=== PATIENT | male | born 1955 | race Caucasian/White ===

== ENCOUNTER 2018-05-10 10:44 | Inpatient (IN) | payer OTHER ==
[~2018-05-10] VITALS: Ht 172.7 cm; Wt 106.4 kg
[~2018-05-10 10:44] MED LIST: ECOTRIN81 M1 PO; HYCET 7.5 MG-3473 ML PO; LISINOPRIL40 M1 PO; LOVENOX40 MG/0.1 SC; MULTI-DAY VITA1 EACH PO; OMEPRAZOLE20 M2 PO; SEA-OMEGA 50 C1 EACH PO; SIMVASTATIN40 M1 PO; TRANDATE100 MG PO; VITAMIN B-121000 MC3 PO; VITAMIN C1000 M4 PO; VITAMIN D250000 UNIT PO; VITAMIN D31000 UNI2 PO; VITAMIN E1000 UNIT PO
[2018-05-10 12:16] LABS: ABSOLUTE BASOPHIL COUNT 0.1 /CUMM (0.0-0.2); ABSOLUTE EOSINOPHIL COUNT 0.1 /CUMM (0.0-0.7); ABSOLUTE GRANULOCYTE CT 6.1 /CUMM (1.4-6.5); ABSOLUTE LYMPH COUNT 0.9 /CUMM (1.2-3.4); ABSOLUTE MONOCYTE COUNT 0.6 /CUMM (0.10-0.60); BASOPHIL % 1.3 % (0.0-2.0); EOSINOPHIL % 0.7 % (0-5); GRANULOCYTE % 79.1 % (42.2-75.2); HEMATOCRIT 40.5 % (42-52); MEAN CORPUSCULAR HGB 37.8 PG (27.0-31.0); MEAN CORPUSCULAR HGB CONC 35.4 G/DL (33.0-37.0); MEAN CORPUSCULAR VOLUME 106.7 FL (80.0-94.0); MEAN PLATELET VOLUME 6.7 FL (7.4-10.4); PLATELET COUNT 226 /CUMM (130-400); RBC DISTRIBUTION WIDTH 15.1 % (11.5-14.5); WHITE BLOOD CELL COUNT 7.8 /CUMM (4.8-10.8)
--- NOTE | 2018-05-10 13:51 | ED GI/GU/ABDOMINAL COMPLAINT ---
See Addendum History of Present Illness General Chief Complaint: General Adult Stated Complaint: SIB GFP FOR "TESTS" Source: patient Exam Limitations: no limitations Vital Signs & Intake/Output Vital Signs & Intake/Output Vital Signs Date Time Temp Pulse Resp B/P B/P Pulse O2 O2 Flow FiO2 Mean Ox Delivery Rate 05/10 1355 97 Room Air Room Air 05/10 1049 96.6 114 18 152/96 94 Room Air Room Air Allergies Coded Allergies: atorvastatin (From LIPITOR) (JOINT ACHES 12/31/15) Triage Note: PT TO ED WITH C/O ABD DISTENTION X 8-10 WEEKS, HX GASTRIC BYPASS 2 YEARS AGO. ALSO HX OF ETOH ABUSE, STOPPED DRINKING 4 WEEKS AGO. PT ARRIVES TO ED ABD DISTENTION, SKIN AND SCLERA SLIGHTLY JAUNDICE IN COLOR. Triage Nurses Notes Reviewed? yes HPI: Pt is a 62 y/o M PMHx COPD, CURTIS, HTN, GERD, s/p gastric bypass 2 years ago complaining of SOB x 4 weeks. Pt states he fist noticed increased SOB and fatigue while walking the dog. Pt states SOB is at its worst with exertion. Pt denies any SOB at rest, cp, palpitations, orthopnea, dizziness, lightheadedness. Pt states he has also noticed growing abdominal distension over the past four weeks. Pt admits to several episodes of diarrhea described as loose stools. Pt states he has heartburn occasionally after meals. Pt denies any N/V/C, henatochezia, melena, dysuria, oliguria. Pt admits to ETOH use daily. When symptoms started, he cut back on hard alcohol and switched to beer. Pt admits to one beer a day currently. Pt also is complaining of increased bruising on his arms. Pt states that if he bumps his arm, a large bruise forms and persists for several days. Pt states he has not been keeping up with a primary doctor over the past year since losing insurance and currently only takes omeprazole, ASA, benadryl PRN, multivitamin. Pt no longer has CPAP after losing insurance. (Kevin CELAYA,Aman) Reconcile Medications Aspirin (Ecotrin*) 81 MG TABLET. 1 TAB PO DAILY HEART/BLOOD (Reported) Multiple Vitamin (Multivitamins) 1 EACH TABLET 1 TAB PO DAILY SUPPLEMENT ( Reported) (Valerie ALVA,Asif.) Past History Travel History Traveled to [place] past 21 day No Medical History Any Pertinent Medical History? see below for history Neurological: NONE EENT: NONE Cardiovascular: hypertension Respiratory: COPD/CURTIS Gastrointestinal: GERD Hepatic: NONE Renal: NONE Musculoskeletal: NONE Psychiatric: alcohol dependence Endocrine: NONE Blood Disorders: NONE Cancer(s): NONE BUCKRAM SEWER/Reproductive: NA History of MRSA: No History of VRE: No History of CDIFF: No Influenza Vaccine: 06/27/15 Surgical History Surgical History: HEAD CYST, R & L SHOULDER ARTHROSCOPY TENDON REPAIR Psychosocial History Who do you live with Patient/Self What is your primary language Angolan Tobacco Use: Quit >30 days ago ETOH Use: alcoholic, CLEAN X 4 WEEKS Illicit Drug Use: denies illicit drug use Family History Hx Contributory? No (Aman Vo) Review of Systems Review of Systems Constitutional: Denies: see HPI. Respiratory: Reports: see HPI. Cardiovascular: Reports: see HPI. GI: Reports: see HPI. Genitourinary: Denies: see HPI. Skin: Reports: see HPI. (Aman Vo) Physical Exam Physical Exam General Appearance: well developed/nourished, alert, awake Head: atraumatic, normal appearance Eyes: Bilateral: other (sceral icterus). Neck: normal inspection, supple, full range of motion Respiratory: decreased breath sounds, wheezing Cardiovascular: regular rate/rhythm, tachycardia, NMRG Peripheral Pulses: 2+ radial (R), 2+ radial (L), 1+ dorsalis pedis (R), 1+ dorsalis pedis (L) Gastrointestinal: normal bowel sounds, distention, tender to palpation of LUQ. No rebound Extremities: Bilateral 3+ LE edema Neurologic/Psych: awake, alert, oriented x 3 Skin: intact, Ecchymosis noted to bilateral UE dispersed on forarms Core Measures ACS in differential dx? Yes Sepsis Present: No Sepsis Focused Exam Completed? No (Aman Vo) Progress Differential Diagnosis: AMI, cholecystitis, hepatitis, pancreatitis, Cirrhosis, Congestive heart failure, Pneumonia Plan of Care: Orders Procedure Date/time Status Heart Healthy Diet 05/11 L Active Heart Healthy Diet 05/11 B Active URINE OSMOLALITY 05/10 170 Active URINE LYTES, SPOT 05/10 170 Active Pathway - chart 05/10 170 Active House Staff 05/10 1702 Active Patient Data 05/10 1632 Active ED Holding Orders 05/10 1608 Active Admit to inpatient 05/10 1608 Active Vital Signs 05/10 1608 Active Code Status 05/10 1608 Active Add-on Test (ER Only) 05/10 1448 Active Add-on Test (ER Only) 05/10 1439 Active EKG 05/10 1438 Active Add-on Test (ER Only) 05/10 1301 Active TROPONIN LEVEL 05/10 1210 Active PARTIAL THROMBOPLASTIN TIME 05/10 1210 Complete PROTHROMBIN TIME 05/10 1210 Complete HEPATITIS PANEL 05/10 1210 Active DIRECT BILIRUBIN 05/10 1210 Active URINALYSIS 05/10 1128 Active LIPASE 05/10 1128 Active COMPREHENSIVE METABOLIC PANEL 05/10 1128 Active CBC WITHOUT DIFFERENTIAL 05/10 1128 Complete AMYLASE 05/10 1128 Active Lab Add-on Test 05/10 UNK Active VTE Mechanical Prophylaxis 05/10 UNK Active CIWA 05/10 UNK Active Current Medications Sig/Dione Start time Last Medication Dose Stop Time Status Admin Enoxaparin Sodium 40 MG DAILY 05/11 0900 AC (Lovenox) Lorazepam 0 Q1P PRN 05/10 1715 AC (Ativan) Laboratory Tests 05/10/18 1210: Anion Gap 11, Estimated GFR > 60, BUN/Creatinine Ratio 19.0, Glucose 104 H, Calcium 8.3 L, Total Bilirubin 6.2 H, Direct Bilirubin Pending, AST 171 H, ALT 90 H, Alkaline Phosphatase 154 H, Troponin I < 0.01, Total Protein 6.5, Albumin 2.8 L, Globulin 3.7, Albumin/Globulin Ratio 0.8 L, Amylase 80, Lipase 614 H, PT 16.2 H, INR 1.48 H, APTT 32, CBC w Diff NO MAN DIFF REQ, RBC 3.80 L, MCV 106.7 H, MCH 37.8 H, MCHC 35.4, RDW 15.1 H, MPV 6.7 L, Gran % 79.1 H , Lymphocytes % 11.7 L, Monocytes % 7.2, Eosinophils % 0.7, Basophils % 1.3, Absolute Granulocytes 6.1, Absolute Lymphocytes 0.9 L, Absolute Monocytes 0.6, Absolute Eosinophils 0.1, Absolute Basophils 0.1, Hepatitis A IgM Ab NONREACTIVE , Hep Bs Antigen NONREACTIVE, Hep B Core IgM Ab Conf NONREACTIVE, Hepatitis C Antibody NONREACTIVE Diagnostic Imaging: Viewed by Me: Radiology Read, CT Scan. Discussed w/RAD: Radiology Read, CT Scan. Radiology Impression: PATIENT: GREY CROWLEY PRESENT AGE: 62 PATIENT ACCOUNT NO: [id number] : 53 LOCATION: [facility] ORDERING PHYSICIAN: Ruth CELAYA SERVICE DATE: 05/10/18 EXAM TYPE: CAT - CT ABD & PELVIS W IV CONTRAST EXAMINATION: CT ABDOMEN AND PELVIS WITH CONTRAST CLINICAL INFORMATION: Abdominal distention and abnormal LFTs/ bilirubin. Rule out cholecystitis, liver abnormality, and ascites. COMPARISON: None TECHNIQUE: Multidetector volumetric imaging was performed of the abdomen and pelvis following IV administration of 95 mL of Optiray 320 intravenous contrast. Sagittal and coronal reformatted images were obtained on the technologist's workstation. DLP: 1331 mGy-cm FINDINGS: LUNG BASES: The visualized lung bases are unremarkable. Normal heart size. Atheromatous calcifications in the coronary arteries. LIVER, GALLBLADDER, AND BILIARY TREE: Liver is normal in size. No definite masses are seen. There is some indistinctness of the hepatic contour which may reflect underlying nodularity. There is mild hyperdensity within the gallbladder likely reflecting sludge. No definite calcified stones are seen. PANCREAS: Unremarkable. SPLEEN: Unremarkable. ADRENAL GLANDS: Unremarkable. KIDNEYS AND URETERS: The kidneys are normal in size, shape, and attenuation. No hydronephrosis, hydroureter, or calculi seen. No perinephric stranding. BLADDER: Unremarkable. GASTROINTESTINAL TRACT: The small and large bowel are unremarkable. The appendix is not definitively seen. There is no bowel obstruction. There are postoperative findings related to Duncan-en-Y gastric bypass surgery. There is large amount of ascites throughout the abdomen and pelvis. As a result there is marked abdominopelvic distention. ABDOMINAL WALL: Diffuse anasarca throughout the subcutaneous fat of the abdominal wall. Small fat-containing left inguinal hernia. LYMPH NODES: Normal. VASCULAR: Diffuse atheromatous calcifications in the abdominal aorta and its branch vessels. The portal vein, splenic vein, and superior mesenteric veins are patent. PELVIC VISCERA: Top normal sized prostate. Normal seminal vesicles. No pelvic mass. OSSEOUS STRUCTURES: Moderate multilevel degenerative spondylotic changes throughout the thoracolumbar spine. Severe disc height loss at L4-L5 with degenerative endplate spurring. Degenerative changes at the right hip joint with mild joint space loss. IMPRESSION: - Large amount of abdominopelvic ascites. - No hepatic mass. Mild indistinctness of the hepatic contour which may be related to underlying nodularity. This finding could be better assessed with ultrasound if needed. - Postoperative changes related to Duncan-en-Y gastric bypass. - Hyperdensity within the gallbladder likely reflecting sludge. - Diffuse anasarca. DICTATED BY: Barak Lopes MD DATE/TIME DICTATED:05/10/181536 STRATEGIC DEBRIEFING SPECIALIST:ELSY DATE/TIME TRANSCRIBED:1536 CONFIDENTIAL, DO NOT COPY WITHOUT APPROPRIATE AUTHORIZATION. < Electronically signed in Other Vendor System> SIGNED BY: Barak Lopes MD 05/10/18 155, PATIENT: GREY CROWLEY PRESENT AGE: 62 PATIENT ACCOUNT NO: [id number] : 53 LOCATION: [facility] ORDERING PHYSICIAN: Aman CELAYA SERVICE DATE: 05/10/18 EXAM TYPE: RAD - XRY-PORTABLE CHEST XRAY EXAMINATION: XR PORTABLE CHEST CLINICAL INFORMATION: Shortness of breath. COMPARISON: Chest radiograph 12/14/2015. TECHNIQUE: Portable frontal view of the chest was obtained. FINDINGS: There are low lung volumes. No dense consolidation, edema, effusion, or pneumothorax is seen. The cardiomediastinal contours appear normal. IMPRESSION: Within the limitations of low lung volumes no acute abnormality is seen in the chest. DICTATED BY: Barak Lopes MD DATE/TIME DICTATED:05/10/181506 STRATEGIC DEBRIEFING SPECIALIST:ELSY DATE/ TIME TRANSCRIBED:05/10/181506 CONFIDENTIAL, DO NOT COPY WITHOUT APPROPRIATE AUTHORIZATION. <Electronically signed in Other Vendor System> SIGNED BY: Barak Lopes MD 05/10/18 151 Initial ED EKG: normal sinus rhythm, rate (101, low voltage), nonspecific ST T wave chg (Aman Vo) Departure Departure Disposition: STILL A PATIENT Condition: Stable Clinical Impression Primary Impression: Hyponatremia Secondary Impressions: Ascites, Liver dysfunction Referrals: Unknown (PCP/Family) Departure Forms: Customer Survey General Discharge Information Admission Note Spoke With: Johana ALVA,Gunnar Documentation of Exam: Documentation of any treatments & extenuating circumstances including Concerns Regarding Discharge (functional status, medication knowledge or non-compliance, living conditions, etc.) that warrant an admission rather than observation: GI consultation. Electrolyte correction. Patient may require a interventional radiology paracentesis. Medically not safe for discharge. (Aman Vo) PA/PRACTICE MANAGEMENT CONSULTANT Co-Sign Statement Statement: ED Attending supervision documentation- [XC] I saw and evaluated the patient. I have also reviewed all the pertinent lab results and diagnostic results. I agree with the findings and the plan of care as documented in the PA's/PRACTICE MANAGEMENT CONSULTANT's documentation. [X] I have reviewed the ED Record and agree with the PA's/PRACTICE MANAGEMENT CONSULTANT's documentation. [] Additions or exceptions (if any) to the PAs/PRACTICE MANAGEMENT CONSULTANT's note and plan are summarized below: [Patient to be admitted for hyponatremia in the setting of ascites. Patient will need a GI consultation and workup, free water restriction, paracentesis] (Valerie ALVA,Chandan Gilbert)
[2018-05-10 15:04] LABS: PT 16.2 SEC (9.4-12.5); PTT 32 SEC (25-37)
--- NOTE | 2018-05-10 15:13 | RADIOLOGY REPORT ---
EXAMINATION: XR PORTABLE CHEST CLINICAL INFORMATION: Shortness of breath. COMPARISON: Chest radiograph 12/14/2015. TECHNIQUE: Portable frontal view of the chest was obtained. FINDINGS: There are low lung volumes. No dense consolidation, edema, effusion, or pneumothorax is seen. The cardiomediastinal contours appear normal. IMPRESSION: Within the limitations of low lung volumes no acute abnormality is seen in the chest.
--- NOTE | 2018-05-10 15:53 | CT SCAN REPORT ---
EXAMINATION: CT ABDOMEN AND PELVIS WITH CONTRAST CLINICAL INFORMATION: Abdominal distention and abnormal LFTs/bilirubin. Rule out cholecystitis, liver abnormality, and ascites. COMPARISON: None TECHNIQUE: Multidetector volumetric imaging was performed of the abdomen and pelvis following IV administration of 95 mL of Optiray 320 intravenous contrast. Sagittal and coronal reformatted images were obtained on the technologist's workstation. DLP: 1331 mGy-cm FINDINGS: LUNG BASES: The visualized lung bases are unremarkable. Normal heart size. Atheromatous calcifications in the coronary arteries. LIVER, GALLBLADDER, AND BILIARY TREE: Liver is normal in size. No definite masses are seen. There is some indistinctness of the hepatic contour which may reflect underlying nodularity. There is mild hyperdensity within the gallbladder likely reflecting sludge. No definite calcified stones are seen. PANCREAS: Unremarkable. SPLEEN: Unremarkable. ADRENAL GLANDS: Unremarkable. KIDNEYS AND URETERS: The kidneys are normal in size, shape, and attenuation. No hydronephrosis, hydroureter, or calculi seen. No perinephric stranding. BLADDER: Unremarkable. GASTROINTESTINAL TRACT: The small and large bowel are unremarkable. The appendix is not definitively seen. There is no bowel obstruction. There are postoperative findings related to Duncan-en-Y gastric bypass surgery. There is large amount of ascites throughout the abdomen and pelvis. As a result there is marked abdominopelvic distention. ABDOMINAL WALL: Diffuse anasarca throughout the subcutaneous fat of the abdominal wall. Small fat-containing left inguinal hernia. LYMPH NODES: Normal. VASCULAR: Diffuse atheromatous calcifications in the abdominal aorta and its branch vessels. The portal vein, splenic vein, and superior mesenteric veins are patent. PELVIC VISCERA: Top normal sized prostate. Normal seminal vesicles. No pelvic mass. OSSEOUS STRUCTURES: Moderate multilevel degenerative spondylotic changes throughout the thoracolumbar spine. Severe disc height loss at L4-L5 with degenerative endplate spurring. Degenerative changes at the right hip joint with mild joint space loss. IMPRESSION: - Large amount of abdominopelvic ascites. - No hepatic mass. Mild indistinctness of the hepatic contour which may be related to underlying nodularity. This finding could be better assessed with ultrasound if needed. - Postoperative changes related to Duncan-en-Y gastric bypass. - Hyperdensity within the gallbladder likely reflecting sludge. - Diffuse anasarca.
[2018-05-10] MEDS ORDERED: ASPIRIN EC81 M1 PO (16:22)
[2018-05-10] MEDS ORDERED: MULTIVITAMINS1 EAC9 PO (16:23)
--- NOTE | 2018-05-10 16:30 | History & Physical ---
GabrielleIvelisse 05/10/18 0230: General Information and HPI MD Statement: I have seen and personally examined GREY CROWLEY and documented this H&P. The patient is a 62 year old M who presented with a patient stated chief complaint of shortness of breath and abdominal distension. Source of Information: patient History of Present Illness: 62-year-old male with past medical history of hypertension, COPD, morbid obesity (BMI: 40.4), CURTIS (no longer on CPAP, since he lost his insurance), alcohol dependence (drinks at least one beer a day), status post gastric bypass presents to the ED with chief complaint of shortness of breath and abdominal distention since 4 weeks. He says he began to notice easy bruising on his arms around November this year. About two months ago, he started getting short of breath on exertion. About 4 weeks ago, he started notiicng distension in his abdomen which has been getting worse since. His daughter apparently noticed about 4 weeks ago that he appeared jaundiced. His abdominal distension has been getting worse to the extent that he is not able to eat The patient apparently had been having 5-6 shots of bourbon or 6 beers everyday till about 4 weeks ago when he decided to quit. He has been drinking one beer a day since. His last drink was the day before yesterday when he says he had half a can of beer. He has never been admitted for alcohol withdrawal. He endorses a tremor in his left hand which has been present for 15 years now and a recent onset tremor in his right hand. The tremor is present at rest and is not aggravated or alleviated with alcohol. He apparently quit smoking in 2008 and has not smoked since. He denies having used illicit drugs ever. He reports he has lost insurance and would be paying for his medical expenses on his own. Allergies/Medications Allergies: Coded Allergies: atorvastatin (From LIPITOR) (JOINT ACHES 12/31/15) Home Med list Aspirin (Ecotrin*) 81 MG TABLET. 1 TAB PO DAILY HEART/BLOOD (Reported) Multiple Vitamin (Multivitamins) 1 EACH TABLET 1 TAB PO DAILY SUPPLEMENT ( Reported) Past History Travel History Traveled to [place] past 21 day No Medical History Neurological: NONE EENT: NONE Cardiovascular: hypertension Respiratory: COPD/CURTIS Gastrointestinal: GERD Hepatic: NONE Renal: NONE Musculoskeletal: NONE Psychiatric: alcohol dependence Endocrine: NONE Blood Disorders: NONE Cancer(s): NONE SODA ROOM OPERATOR/Reproductive: NA History of MRSA: No History of VRE: No History of CDIFF: No Influenza Vaccine: 06/27/15 Surgical History Surgical History: HEAD CYST, R & L SHOULDER ARTHROSCOPY TENDON REPAIR Past Family/Social History Psychosocial History ETOH Use: alcoholic Illicit Drug Use: denies illicit drug use Review of Systems Review of Systems Constitutional: Denies: chills, diaphoresis, fever, malaise. EENTM: Reports: icterus. Denies: blurred vision, visual changes. Cardiovascular: Reports: edema, peripheral edema. Denies: chest pain, orthopena, palpitations, syncope. Respiratory: Reports: short of breath. Denies: cough, hemoptysis, orthopnea, sputum production, stridor, wheezing. GI: Reports: abdominal pain, bloating, diarrhea, distention, changes in stool. Denies: constipation, bowel incontinence, melena, nausea, bloody stool, vomiting. Genitourinary: Denies: frequency, hematuria, hesitation, nocturia. Musculoskeletal: Denies: gout, joint pain, joint swelling, muscle pain. Skin: Reports: jaundice, lesions. Denies: change in skin color, change in hair/nails, dryness, erythema, rash. Neurological/Psychological: Reports: tremors. Denies: anxiety, ataxia, cognitive dysfunction, confusion, depressed, dementia, emotional problems, headache, numbness, paresthesia, tingling. Hematologic/Endocrine: Reports: bruising. Denies: bleeding, polyuria, polydipsia. Exam & Diagnostic Data Last 24 Hrs of Vital Signs/I&O Vital Signs Date Time Temp Pulse Resp B/P B/P Pulse O2 O2 Flow FiO2 Mean Ox Delivery Rate 05/10 2207 97.9 92 18 122/80 97 Room Air 05/10 1927 98.3 104 20 110/80 05/10 1927 96 Room Air 05/10 1919 92 18 144/79 98 Room Air 05/10 1355 97 Room Air Room Air 05/10 1049 96.6 114 18 152/96 94 Room Air Room Air Intake & Output 05/10 1600 05/10 0800 05/10 0000 Intake Total Output Total Balance Patient 266 lb Weight Weight Reported by Patient Measurement Method Physical Exam General Appearance Alert, Oriented X3, Cooperative, No Acute Distress Skin Multiple ecchymoses on bilateral forearms Skin Temp/Moisture Exam: Warm/Dry Sepsis Skin Exam (color): Normal for Ethnicity Neck Supple Cardiovascular Regular Rate, Normal S1, Normal S2, No Murmurs Lungs Clear to Auscultation Abdomen Abdomen grossly distended Neurological tremor present bilateral upper limb left hand>right hand Extremities Normal Pulses, pedal edema + Vascular Normal Pulses, Pulses Symmetrical Assessment/Plan Assessment: 62-year-old male with past medical history of hypertension, COPD, morbid obesity (BMI: 40.4), CURTIS (no longer on CPAP, since he lost his insurance), alcohol dependence (drinks at least one beer a day), status post gastric bypass presents to the ED with chief complaint of shortness of breath and abdominal distention since 4 weeks. On examination Vital signs in the ED: Temp: 96.6, pulse: 114, RR: 18, BP: 152/96, saturating 94 % on room air Labs: WBC:7.8 Hgb:14.3 Na: 123 K:3.9 Bilirubin:6.2 Direct bilirubin:3.9 AST:171 ALT:90Alkaline phosphatase: 154 ALbumin:2.3 Lipase:614 INR:1.43 Abdominal Ultrasound IMPRESSION: 1. Large volume of abdominal ascites. 2. No focal liver lesion or intrahepatic bile duct dilatation. 3. Echogenic bile within the gallbladder. No gallstone. Abdominal CT scan IMPRESSION: - Large amount of abdominopelvic ascites. - No hepatic mass. Mild indistinctness of the hepatic contour which may be related to underlying nodularity. This finding could be better assessed with ultrasound if needed. - Postoperative changes related to Duncan-en-Y gastric bypass. - Hyperdensity within the gallbladder likely reflecting sludge. - Diffuse anasarca. Problems: 1. Ascites with decompensated liver failure 2. Transaminitis 3. Hyponatremia 4. Macrocytic anemia 5. Eleveted Lipase 6. Alcohol dependence 7. Easy bruising 8. History of COPD, CURTIS, GERD 1. Ascites -Large volume ascites likely secondary to decompensated liver failure -CT scan demonstrates nodularity of the liver -Paracentesis in the AM -Albumin supplementation -Repeat BEP in the AM -Trend LFTs -GI consult in the AM - 2. Tranaminitis -AST elevated approximately 2 times ALT signifying alcoholic liver disease -Patient apparently has been trying to quit -WIll repeat BEP 3. Hyponatremia -Likely secondary to beer potomania -Fluid restriction -Trend BEP 4. Macrocytic anemia -Likely seconadary to chornic alcohol use -Supplement B12 and folic acid -The patient does not complain of any focal neurological deficits at this time 5. Alcohol withdrawal - The patient has apparently been drinking heavily -At risk for severe withdrawal -He is on CIWA protocol, will monitor for withdrawal 6. Easy bruising -Platelet count adequate -Bruising likely due to qualitative defect in platelets 7. History of CURTIS, GERD, HYpertension and Hyperlipidemia Continue home medications and CPAP DVT prophylaxis: Lovenox Code status: Full code As Ranked By This Provider Problem List: 1. Ascites 2. Liver dysfunction 3. Hyponatremia 4. Hyperlipidemia 5. GERD (gastroesophageal reflux disease) 6. Sleep apnea 7. Hypertension 8. Morbid obesity 9. Gastric bypass status for obesity 10. Alcohol dependence 11. Macrocytic anemia 12. Easy bruising Core Measures/Misc (06/04) Acute Coronary Syndrome ACS Diagnosis: No Congestive Heart Failure Congestive Heart Failure Diagnosis No Cerebrovascular Accident CVA/TIA Diagnosis: No VTE (View Protocol) VTE Risk Factors Age>40 No Mechanical VTE Prophylaxis d/t N/A MechProphylax Ordered No VTE Pharm Prophylaxis d/t NA PharmProphylax ordered Sepsis (View protocol) Sepsis Present: No If YES complete Sepsis Event Note If YES complete Sepsis Event Note Gunnar Vaughn MD 05/10/18 1741: Core Measures/Misc (06/04) Sepsis (View protocol) If YES complete Sepsis Event Note If YES complete Sepsis Event Note Attending MD Review Statement Attending Statement Attending MD Statement: examined this patient, discuss w/resident/PA/DEHYDRATOR, agreed w/resident/PA/DEHYDRATOR, reviewed EMR data (avail), discussed with nursing, discussed with case mgmt, amended to note Attending Assessment/Plan: 62-year-old history of gastric bypass surgery 3 years ago presents to the emergency room complains of progressively worsening shortness of breath generalized edema and increased abdominal girth. Arrived emergency room afebrile hemodynamically stable. Imaging reveals severe ascites and evidence of cirrhosis. Laboratory data shows transaminitis and elevated bilirubin level. Laboratory data also shows hyponatremia. On account of his symptoms on lab work he was referred to the inpatient medical service for further evaluation and management. On examination patient is lying comfortably in bed. Is not in any respiratory distress. Heart sounds are regular. No jugular venous distention. Lungs are clear. Abdomen is markedly distended. Soft, from, nontender with normal bowel sounds. He has 1+ peripheral edema in the lower extremities. He has ecchymotic areas in the upper extremities. Problems: 1. Marked ascites secondary to cirrhosis 2. Transaminitis 3. Hyponatremia 4. Alcohol abuse Plan: -Admit to inpatient medical service. -Schedule for diagnostic and therapeutic paracentesis tomorrow. -Fluid restriction. Repeat serum chemistry in a.m. -Viral hepatitis panel is negative. Transaminitis is likely secondary to alcohol use. -Lipase levels mildly elevated.CT scan however shows an unremarkable pancreas. Patient denies abdominal pain. -Place on CIWA scale. Although patient reports that he has been gradually cutting down his alcohol intake, he is at high risk for developing alcohol withdrawal symptoms. Manjinder ALVA,[facility] 05/10/182057: Core Measures/Misc (06/04) Sepsis (View protocol) If YES complete Sepsis Event Note If YES complete Sepsis Event Note Resident Review Statement Resident Statement: examined this patient, agreed with general intern, amended to note Other Findings: 62-year-old present gentleman with a past medical history significant for COPD, CURTIS, hypertension, GERD, active and chronic alcohol abuse, presents for evaluation of four-week history of shortness of breath especially on exertion. Associated symptoms include increased abdominal girth. No report of chest pain, palpitation, orthopnea. On physical examination he has prominent abdominal ascites and appears jaundiced. His Liver functions and enzymes are deranged ( elevated). Impression * Abdominal ascites. Directly visible consistent with grade 4 ascites. There is no abdominal tenderness or fevers/leukocytosis, therefore concern for SBP is very low. Patient does have an extensive alcohol use history in the office high risk for liver cirrhosis. This CT abdomen and pelvis is suggestive of liver nodularity but no clear cirrhotic characteristics. Clinically he is presenting with liver function decompensation given the transaminitis, elevated PT, and elevated bilirubin. * Hyponatremia. Given his fluid status his etiology is most likely hypovolemic hyponatremia. * Transaminitis. The elevated AST to ALT ratio of almost 2:1 is consistent with alcohol abuse. * Alcohol abuse. Plan Admit to general medicine Fluid restriction of 1200 per day Obtain urine lytes Trend BEP tomorrow morning for sodium levels Will order right upper quadrant ultrasound to better assess for liver nodularity Will arrange for abdominal paracentesis which will obviously be for therapeutic and diagnostic reasons Given the expectation of large volume paracentesis, will give patient albumin tomorrow DVT prophylaxis; Lovenox apparent CODE STATUS full
--- NOTE | 2018-05-10 17:39 | Admission Certification ---
Admission Certification Certification Statement - As attending physician, I certify that at the time of - admission, based on clinical presentation, severity of - symptoms, need for further diagnostic testing and - therapeutic interventions, and risk of adverse outcomes - without in-hospital treatment, in my clinical assessment, - this patient requires an acute hospital stay for a minimum - of two nights or longer. I have also considered psychsocial - factors such as support system, advanced age, financial - issues, cognitive issues, and failed out-patient treatments, - past re-admission history, safety of patient, and lack of - compliance as applicable. Specific rationale supporting this admission is: Patient requires hospitalization for management of his hyponatremia. Paracentesis
[2018-05-10 19:27] VITALS: BP 110/80
--- NOTE | 2018-05-10 20:12 | ULTRASOUND REPORT ---
EXAMINATION: US ABDOMEN COMPLETE CLINICAL INFORMATION: Abdominal bloating.. COMPARISON: Ultrasound limited abdomen 01/19/2015. CT scan abdomen pelvis 05/12/2018 TECHNIQUE: Real-time imaging of the abdominal viscera. Color Doppler exam used. FINDINGS: PANCREAS: Obscured by bowel gas ABDOMINAL AORTA: Obscured by bowel gas INFERIOR VENA CAVA: Obscured by bowel gas LIVER: Echotexture of the liver is slightly heterogeneous. There is no focal liver lesion. There is no intrahepatic bile duct dilatation. GALLBLADDER: There is echogenic bile in the lumen of the gallbladder. There is no gallstone. The wall thickness of the gallbladder is 0.4 cm which is nonspecific in the presence of abdominal ascites. COMMON BILE DUCT: Normal in caliber measuring 0.6 cm in diameter. RIGHT KIDNEY: Normal. No hydronephrosis. No renal calculi or focal parenchymal lesions. The kidney measures 10.6 cm in maximum dimension. LEFT KIDNEY: Left kidney is not visualized. Obscured by bowel gas. SPLEEN: The spleen is not visualized. Obscured by bowel gas. FREE FLUID: There is a large volume of abdominal ascites. IMPRESSION: 1. Large volume of abdominal ascites. 2. No focal liver lesion or intrahepatic bile duct dilatation. 3. Echogenic bile within the gallbladder. No gallstone.
[2018-05-10 22:07] VITALS: BP 122/80
[2018-05-11] VITALS (7 sets, daily range): BP systolic 114–140; BP diastolic 68–80
--- NOTE | 2018-05-11 07:26 | PN- Housestaff ---
Ivelisse Anthony 05/11/18 0726: Subjective Follow-up For: Abdominal distension SOB Subjective: Patient was seen and exmained at bedside. He has no new complaints. Denies fever , chills, nausea, vomiting, chest pain. Review of Systems Constitutional: Reports: see HPI. Objective Last 24 Hrs of Vital Signs/I&O Vital Signs Date Time Temp Pulse Resp B/P B/P Pulse O2 O2 Flow FiO2 Mean Ox Delivery Rate 05/12 0800 96 Room Air 05/12 0615 97.4 85 20 126/72 94 05/11 2209 98.5 90 19 114/76 96 Room Air 05/11 2200 98.5 90 19 114/76 05/11 2000 98.1 82 18 128/68 05/11 1552 98.1 82 18 128/68 97 Room Air Room Air 05/11 1346 98.4 103 18 130/80 97 Room Air Room Air Intake & Output 05/12 1600 05/12 0800 05/12 0000 Intake Total 240 850 Output Total Balance 240 850 Intake, IV 0 10 Intake, Oral 240 840 Number 0 0 Bowel Movements Patient 218 lb 236 lb Weight Weight Bed scale Bed scale Measurement Method Physical Exam General Appearance: Alert, Oriented X3, Cooperative, No Acute Distress Skin: ecchymoses on b/l arms Neck: Supple Cardiovascular: Regular Rate, Normal S1, Normal S2, No Murmurs Lungs: Clear to Auscultation Abdomen: large volume ascites, n tenderness Extremities: No Edema, Normal Pulses Assessment/Plan Assessment: 62-year-old male with past medical history of hypertension, COPD, morbid obesity (BMI: 40.4), CURTIS (no longer on CPAP, since he lost his insurance), alcohol dependence (drinks at least one beer a day), status post gastric bypass is admiyyed to the Gen Med service for the management of shortness of breath and abdominal distention since 4 weeks. On examination Vital signs in the ED: Temp: 96.6, pulse: 114, RR: 18, BP: 152/96, saturating 94 % on room air Labs: WBC:7.8 Hgb:14.3 Na: 123 K:3.9 Bilirubin:6.2 Direct bilirubin:3.9 AST:171 ALT:90Alkaline phosphatase: 154 ALbumin:2.3 Lipase:614 INR:1.43 Abdominal Ultrasound IMPRESSION: 1. Large volume of abdominal ascites. 2. No focal liver lesion or intrahepatic bile duct dilatation. 3. Echogenic bile within the gallbladder. No gallstone. Abdominal CT scan IMPRESSION: - Large amount of abdominopelvic ascites. - No hepatic mass. Mild indistinctness of the hepatic contour which may be related to underlying nodularity. This finding could be better assessed with ultrasound if needed. - Postoperative changes related to Duncan-en-Y gastric bypass. - Hyperdensity within the gallbladder likely reflecting sludge. - Diffuse anasarca. Problems: 1. Ascites with decompensated liver failure 2. Transaminitis 3. Hyponatremia 4. Macrocytic anemia 5. Eleveted Lipase 6. Alcohol dependence 7. Easy bruising 8. History of COPD, CURTIS, GERD 1. Ascites -Large volume ascites likely secondary to decompensated liver failure -CT scan demonstrates nodularity of the liver -Paracentesis later in the day today -Albumin supplementation -Trend BEP -Trend LFTs - 2. Tranaminitis -AST elevated approximately 2 times ALT signifying alcoholic liver disease -Patient apparently has been trying to quit -WIll repeat BEP 3. Hyponatremia -Likely secondary to beer potomania -Fluid restriction -Trend BEP 4. Macrocytic anemia -Likely seconadary to chornic alcohol use -Supplement B12 and folic acid -The patient does not complain of any focal neurological deficits at this time 5. Alcohol withdrawal - The patient has apparently been drinking heavily -At risk for severe withdrawal -He is on CIWA protocol, will monitor for withdrawal 6. Easy bruising -Platelet count adequate -Bruising likely due to qualitative defect in platelets 7. History of CURTIS, GERD, HYpertension and Hyperlipidemia Continue home medications and CPAP DVT prophylaxis: Lovenox Code status: Full code Problem List: 1. Gastric bypass status for obesity 2. Alcohol dependence 3. Macrocytosis 4. Easy bruising 5. Ascites 6. Liver dysfunction 7. Hyponatremia 8. Hyperlipidemia 9. Sleep apnea 10. Hypertension 11. Morbid obesity Pain Ratin Pain Location: none Pain Goal: Remain pain free Pain Plan: none Tomorrow's Labs & Rationales: cbc and bep Osmar Thomason 05/11/18 1132: Attending MD Review Statement Attending Statement Attending MD Statement: examined this patient, discuss w/resident/PA/COMPUTER NUMERICAL CONTROL PROGRAMMER, agreed w/resident/PA/COMPUTER NUMERICAL CONTROL PROGRAMMER, discussed with family, reviewed EMR data (avail), discussed with nursing, discussed with case mgmt, reviewed images, amended to note Attending Assessment/Plan: 62-year-old history of gastric bypass surgery 3 years ago presents to the emergency room complains of progressively worsening shortness of breath with generalized edema and increased abdominal girth. Hemodynamically stable. Abdomen distended with positive fluid thrill. Problems: 1. Marked ascites secondary to cirrhosis 2. Transaminitis 3. Hyponatremia 4. Alcohol abuse 5. Elevated INR Plan: -obtain diagnostic and therapeutic paracentesis. -Fluid restriction. Na 124 today. -Viral hepatitis panel is negative. Transaminitis is likely secondary to alcohol use. -Monitor Na levels and hemodynamcis after paracentesis. -anticipate discharge if bp stable FOLLOW UP PCP in 1-2 weeks of discharge
[2018-05-11 08:25] LABS: ABSOLUTE BASOPHIL COUNT 0 /CUMM (0.0-0.2); ABSOLUTE EOSINOPHIL COUNT 0.2 /CUMM (0.0-0.7); ABSOLUTE GRANULOCYTE CT 4.6 /CUMM (1.4-6.5); ABSOLUTE LYMPH COUNT 1.5 /CUMM (1.2-3.4); ABSOLUTE MONOCYTE COUNT 0.8 /CUMM (0.10-0.60); BASOPHIL % 0.4 % (0.0-2.0); EOSINOPHIL % 2.7 % (0-5); GRANULOCYTE % 64.5 % (42.2-75.2); HEMATOCRIT 37.1 % (42-52); MEAN CORPUSCULAR HGB 37.6 PG (27.0-31.0); MEAN CORPUSCULAR HGB CONC 34.4 G/DL (33.0-37.0); MEAN CORPUSCULAR VOLUME 109.4 FL (80.0-94.0); MEAN PLATELET VOLUME 7.2 FL (7.4-10.4); PLATELET COUNT 195 /CUMM (130-400); RBC DISTRIBUTION WIDTH 15.4 % (11.5-14.5); RED BLOOD CELL CT 3.39 /CUMM (4.70-6.10); WHITE BLOOD CELL COUNT 7.1 /CUMM (4.8-10.8)
--- NOTE | 2018-05-11 15:51 | Patient Discharge Instructions ---
Discharge Instructions General Discharge Information You were seen/treated for: Shortness of breath Abdominal Distension Bruising on your arms You had these procedures: Paracentesis Special Instructions: 1.Please see your PCP within a week of your discharge. 2. Please schedule an appointment with within a week from the discharge to get an EGD done. 3. Please strictly restrict your Sodium intake to 2g a day. 4. Please restrict your fluid intake to 1500cc a day. 5. Please get your alpha fetoprotein levels checked as an outpatient. 6. Please record DAILY weights and chart them. You would need to bring them to your doctors' offices when you go and see them. Acute Coronary Syndrome Inclusion Criteria At DC or during hospital stay patient has or had the following: ACS DIAGNOSIS No Discharge Core Measures Meds if any: Prescribed or Continued at Discharge Meds if any: NOT Prescribed or Continued at Discharge Congestive Heart Failure Inclusion Criteria At DC or during hospital stay patient has or had the following: CHF DIAGNOSIS No Discharge Core Measures Meds if any: Prescribed or Continued at Discharge Meds if any: NOT Prescribed or Continued at Discharge Cerebrovascular accident Inclusion Criteria At DC or during hospital stay patient has or had the following: CVA/TIA Diagnosis No Discharge Core Measures Meds if any: Prescribed or Continued at Discharge Meds if any: NOT Prescribed or Continued at Discharge Venous thromboembolism Inclusion Criteria VTE Diagnosis No VTE Type NONE VTE Confirmed by (Test) NONE Discharge Core Measures - Per Current guidelines, there needs to be overlap - treatment for the first 5 days of Warfarin therapy. - If discharged on Warfarin prior to 5 days of - overlap therapy, the patient will need to be - assessed for post discharge needs including - *Post discharge parental anticoagulation - *Warfarin and/or parental anticoagulation education - *Follow up date to check INR post discharge At least 5 days overlap therapy as Inpatient No Meds if any: Prescribed or Continued at Discharge Note: Overlap Therapy is Warfarin and Anticoagulant Meds if any: NOT Prescribed or Continued at Discharge
--- NOTE | 2018-05-11 16:32 | ULTRASOUND REPORT ---
EXAMINATION: PARACENTESIS CLINICAL INFORMATION: Ascites COMPARISON: Abdominal ultrasound and CT abdomen pelvis 05/10/2018 TECHNIQUE: Indirect ultrasound guidance using a 6 Danish Qssv-X-Zqleoeod closed needle/catheter system FINDINGS: Informed consent was obtained from the patient prior to the procedure. During this process, the procedure alternatives were explained, along with the intended outcome and benefits. The risks of the procedure, as well as the risk of not doing the procedure, was discussed. The patient was given the opportunity to ask questions regarding the procedure and appeared competent to make medical decisions. A signed consent form which documents this discussion was placed in the medical record. Ultrasound evaluation of the abdomen for ascites was performed. Large amount of ascites is noted in the right lower quadrant. The site was marked. A timeout procedure was performed. The area was prepped and draped in usual sterile fashion. Using standard interventional and sterile techniques, lidocaine was used to anesthetize the region. A 6 Danish Lefh-X-Thphjroy closed needle/catheter system was introduced into the right lower quadrant using standard safety needle technique. Approximately 11.5 L of light yellow fluid was removed into the Vacutainer bottles. The catheter was then removed. Good hemostasis was achieved. Dermabond was placed. The patient demonstrated immediate symptomatic relief. The patient tolerated the procedure well. The patient was discharged from the department in stable condition. COMPLICATIONS: None. IMPRESSION: Successful ultrasound-guided paracentesis yielding 11.5 L of fluid.
[2018-05-12 06:15] VITALS: BP 126/72
[2018-05-12 08:34] LABS: ABSOLUTE BASOPHIL COUNT 0 /CUMM (0.0-0.2); ABSOLUTE EOSINOPHIL COUNT 0.3 /CUMM (0.0-0.7); ABSOLUTE GRANULOCYTE CT 3.9 /CUMM (1.4-6.5); ABSOLUTE MONOCYTE COUNT 0.8 /CUMM (0.10-0.60); BASOPHIL % 0.4 % (0.0-2.0); EOSINOPHIL % 4.6 % (0-5); GRANULOCYTE % 64.7 % (42.2-75.2); HEMATOCRIT 37.6 % (42-52); MEAN CORPUSCULAR HGB 37.8 PG (27.0-31.0); MEAN CORPUSCULAR VOLUME 108.1 FL (80.0-94.0); MEAN PLATELET VOLUME 7.2 FL (7.4-10.4); PLATELET COUNT 166 /CUMM (130-400); RBC DISTRIBUTION WIDTH 15.1 % (11.5-14.5); RED BLOOD CELL CT 3.48 /CUMM (4.70-6.10)
--- NOTE | 2018-05-12 11:43 | PN- Housestaff ---
Paulo Harper 05/12/18 1142: Subjective Follow-up For: Ascites, Shortness of breath Subjective: Patient seen and examined at bedside. He was enjoying his breakfast. He was no more complaining of shortness of breath, chest pain, palpitation, abdominal pain , diarrhea, constipation, burning micturition, confusion, disorientation. Review of Systems Constitutional: Reports: see HPI. Objective Last 24 Hrs of Vital Signs/I&O Vital Signs Date Time Temp Pulse Resp B/P B/P Pulse O2 O2 Flow FiO2 Mean Ox Delivery Rate 05/12 1505 97.8 100 18 128/81 99 Room Air 05/12 0800 96 Room Air 05/12 0615 97.4 85 20 126/72 94 05/11 2209 98.5 90 19 114/76 96 Room Air 05/11 2200 98.5 90 19 114/76 05/11 2000 98.1 82 18 128/68 Intake & Output 05/12 1600 05/12 0800 05/12 0000 Intake Total 600 240 850 Output Total 3 Balance 597 240 850 Intake, IV 0 10 Intake, Oral 600 240 840 Number 0 0 Bowel Movements Output, Stool 3 Patient 218 lb 236 lb Weight Weight Bed scale Bed scale Measurement Method Physical Exam General Appearance: Alert, Oriented X3, Cooperative, No Acute Distress Assessment/Plan Assessment: 62-year-old male with past medical history of hypertension, COPD, morbid obesity (BMI: 40.4), CURTIS (no longer on CPAP, since he lost his insurance), alcohol dependence (drinks at least one beer a day), status post gastric bypass is admiyyed to the Gen Med service for the management of shortness of breath and abdominal distention since 4 weeks. On examination Vital signs in the ED: Temp: 96.6, pulse: 114, RR: 18, BP: 152/96, saturating 94 % on room air Labs: WBC:7.8 Hgb:14.3 Na: 123 K:3.9 Bilirubin:6.2 Direct bilirubin:3.9 AST:171 ALT:90Alkaline phosphatase: 154 ALbumin:2.3 Lipase:614 INR:1.43 Abdominal Ultrasound IMPRESSION: 1. Large volume of abdominal ascites. 2. No focal liver lesion or intrahepatic bile duct dilatation. 3. Echogenic bile within the gallbladder. No gallstone. Abdominal CT scan IMPRESSION: - Large amount of abdominopelvic ascites. - No hepatic mass. Mild indistinctness of the hepatic contour which may be related to underlying nodularity. This finding could be better assessed with ultrasound if needed. - Postoperative changes related to Duncan-en-Y gastric bypass. - Hyperdensity within the gallbladder likely reflecting sludge. - Diffuse anasarca. Problems list: *Ascites with elevated liver enzyme *Hyponatremia *Microcytic anemia *Alcohol dependence *Hyponatremia *Elevated lipase * Obstructive sleep apnea, COPD, GERD Ascites: -Large volume ascites likely secondary to decompensated liver failure, -Paracentesis done 11 L of fluid drained. Patient is vitally stable now, -Liver enzymes trending down. -A low-salt diet -His liver disease seem to be due to alcohol. -GI consultation placed -Will follow GI notes Hyponatremia -Likely secondary to beer potomania -Fluid restriction from tonight -We will follow BMP tomorrow Macrocytic anemia -Likely seconadary to chornic alcohol use -Supplement B12 and folic acid -The patient does not complain of any focal neurological deficits at this time -No sign of imbalance -No tingling and burning sensation in the arms and legs Alcohol withdrawal - The patient has apparently been drinking heavily -At risk for severe withdrawal -He is on CIWA protocol, will monitor for withdrawal History of CURTIS, GERD, HYpertension and Hyperlipidemia Continue home medications and CPAP DVT prophylaxis: Lovenox Code status: Full code Problem List: 1. Morbid obesity 2. GERD (gastroesophageal reflux disease) 3. Hyponatremia 4. Ascites 5. Alcohol dependence Pain Ratin Pain Location: No pain Pain Goal: Remain pain free Pain Plan: Pain management pathway Tomorrow's Labs & Rationales: IJEOMA Veloz MD,Amir 05/12/18 1238: Attending MD Review Statement Attending Statement Attending MD Statement: examined this patient, discuss w/resident/PA/COMPUTER NUMERICAL CONTROL GRINDER, agreed w/resident/PA/COMPUTER NUMERICAL CONTROL GRINDER, reviewed EMR data (avail), discussed with nursing Attending Assessment/Plan: Pt was seen and evaluated. Chart reviewed. Underwent paracentesis ~ 11.5 L. Pt denies any GI/Liver eval in the past. --pt will need GI/Liver eval for further evaluation & managment --cont to monitor lytes & fluid restriction --rest of the plan as per resident's note
[2018-05-12 15:05] VITALS: BP 128/81
[2018-05-12 21:21] VITALS: BP 117/69
[2018-05-13 06:24] VITALS: BP 112/76
--- NOTE | 2018-05-13 08:36 | PN- Housestaff ---
Paulo Harper 05/13/18 0836: Subjective Follow-up For: Ascites, shortness of breath Subjective: Patient seen and examined at bedside. He was no more complaining of shortness of breath, chest pain, palpitation, abdominal pain, diarrhea, constipation, burning micturition, confusion, disorientation. Review of Systems Constitutional: Reports: see HPI. Objective Last 24 Hrs of Vital Signs/I&O Vital Signs Date Time Temp Pulse Resp B/P B/P Pulse O2 O2 Flow FiO2 Mean Ox Delivery Rate 05/13 1500 98.0 92 20 110/72 98 05/13 1057 97.1 76 18 126/76 96 Room Air 05/13 0800 96 Room Air 05/13 0624 97.7 85 20 112/76 96 05/12 2121 97.9 91 20 117/69 96 Room Air Intake & Output 05/13 1600 05/13 0800 05/13 0000 Intake Total 360 10 610 Output Total 325 300 100 Balance 35 -290 510 Intake, IV 10 10 Intake, Oral 360 600 Output, Urine 325 300 100 Patient 202 lb Weight Weight Bed scale Measurement Method Physical Exam General Appearance: Alert, Oriented X3, Cooperative, No Acute Distress Assessment/Plan Assessment: 62-year-old male with past medical history of hypertension, COPD, morbid obesity (BMI: 40.4), CURTIS (no longer on CPAP, since he lost his insurance), alcohol dependence (drinks at least one beer a day), status post gastric bypass is admiyyed to the Gen Med service for the management of shortness of breath and abdominal distention since 4 weeks. On examination Vital signs in the ED: Temp: 96.6, pulse: 114, RR: 18, BP: 152/96, saturating 94 % on room air Labs: WBC:7.8 Hgb:14.3 Na: 123 K:3.9 Bilirubin:6.2 Direct bilirubin:3.9 AST:171 ALT:90Alkaline phosphatase: 154 ALbumin:2.3 Lipase:614 INR:1.43 Abdominal Ultrasound IMPRESSION: 1. Large volume of abdominal ascites. 2. No focal liver lesion or intrahepatic bile duct dilatation. 3. Echogenic bile within the gallbladder. No gallstone. Abdominal CT scan IMPRESSION: - Large amount of abdominopelvic ascites. - No hepatic mass. Mild indistinctness of the hepatic contour which may be related to underlying nodularity. This finding could be better assessed with ultrasound if needed. - Postoperative changes related to Duncan-en-Y gastric bypass. - Hyperdensity within the gallbladder likely reflecting sludge. - Diffuse anasarca. Problems list: *Ascites with elevated liver enzyme *Hyponatremia *Microcytic anemia *Alcohol dependence *Hyponatremia *Elevated lipase * Obstructive sleep apnea, COPD, GERD Ascites: -Large volume ascites likely secondary to decompensated liver failure, -Paracentesis done 11 L of fluid drained. Patient is vitally stable now, -Liver enzymes trending down. -A low-salt diet -His liver disease seem to be due to alcohol. -GI consultation recommended, 2 g sodium diet with dietitian counseling -May liberalize fluid restriction to 1500 mL, given sodium of greater than 125 -Daily weight and after discharge -Outpatient EGD to rule out varices -Alpha-fetoprotein -Outpatient alcohol rehab -Outpatient follow-up with Dr. Olivarez -Will follow GI notes Hyponatremia -Today sodium was 126 -Likely secondary to beer potomania -Fluid restriction from tonight last night continued -We will follow BMP tomorrow Macrocytic anemia -Likely seconadary to chornic alcohol use -Supplement B12 and folic acid -The patient does not complain of any focal neurological deficits at this time -No sign of imbalance -No tingling and burning sensation in the arms and legs Alcohol withdrawal - The patient has apparently been drinking heavily -At risk for severe withdrawal -He is on CIWA protocol, will monitor for withdrawal History of CURTIS, GERD, HYpertension and Hyperlipidemia Continue home medications and CPAP DVT prophylaxis: Lovenox Code status: Full code Problem List: 1. Hyponatremia 2. GERD (gastroesophageal reflux disease) 3. Morbid obesity 4. Ascites 5. Easy bruising Pain Ratin Pain Location: no pain Pain Goal: Remain pain free Pain Plan: pain mangement pathway Tomorrow's Labs & Rationales: gene Veloz MD,Amir 05/13/18 1047: Attending MD Review Statement Attending Statement Attending MD Statement: examined this patient, discuss w/resident/PA/MANGLE FEEDER, agreed w/resident/PA/MANGLE FEEDER, reviewed EMR data (avail), discussed with nursing Attending Assessment/Plan: Pt reports doing OK. Denies any abd pain, Nausea or vomiting --Na stable --f/u GI eval --rest of the plan as per resident's note
[2018-05-13 10:57] VITALS: BP 126/76
--- NOTE | 2018-05-13 13:18 | Cons- Gastroenterology ---
General Information and HPI Consulting Request Date of Consult: 05/13/18 Requested By: Paddy ALVA,Osmar Reason for Consult: Decompensated cirrhosis Allergies/Medications Allergies: Coded Allergies: atorvastatin (From LIPITOR) ([facility] 12/31/15) Home Med List: Aspirin (Ecotrin*) 81 MG TABLET.DR 1 TAB PO DAILY HEART/BLOOD (Reported) Multiple Vitamin (Multivitamins) 1 EACH TABLET 1 TAB PO DAILY SUPPLEMENT ( Reported) Current Medications: Current Medications Sig/Dione Start time Last Medication Dose Route Stop Time Status Admin Acetaminophen 325 MG Q6P PRN 05/10 2130 AC PO Aspirin Buffered 81 MG DAILY 05/12 09 AC 05/13 PO 1015 Enoxaparin Sodium 40 MG DAILY 05/11 0900 AC 05/13 SC 1016 Lidocaine 1 PAT Q24H PRN 05/10 2130 AC EXT Lorazepam 0 Q1P PRN 05/10 171 AC IV Melatonin 5 MG AT BEDTIME 05/11 2100 AC 05/12 PO 2010 Past History Travel History Traveled to [place] past 21 day No Medical History Blood Transfusion Hx: No Neurological: NONE EENT: NONE Cardiovascular: hypertension Respiratory: COPD/CURTIS Gastrointestinal: GERD Hepatic: NONE Renal: NONE Musculoskeletal: NONE Psychiatric: alcohol dependence Endocrine: NONE Blood Disorders: NONE Cancer(s): NONE SEEING EYE DOG TEACHER/Reproductive: NA Surgical History Surgical History: HEAD CYST, R & L SHOULDER ARTHROSCOPY TENDON REPAIR Psychosocial History Where Do You Live? Home Services at Home: None Smoking Status: Former Smoker ETOH Use: alcoholic Illicit Drug Use: denies illicit drug use Exam & Diagnostic Data Vital Signs and I&O Vital Signs Date Time Temp Pulse Resp B/P B/P Pulse O2 O2 Flow FiO2 Mean Ox Delivery Rate 05/13 1057 97.1 76 18 126/76 96 Room Air 05/13 0800 96 Room Air 05/13 0624 97.7 85 20 112/76 96 05/12 2121 97.9 91 20 117/69 96 Room Air 05/12 1505 97.8 100 18 128/81 99 Room Air Intake & Output 05/13 1600 05/13 0400 05/12 1600 05/12 0400 05/11 1600 05/11 0400 Intake Total 10 610 840 850 740 310 Output Total 300 100 3 Balance -290 510 837 850 740 310 Intake, IV 10 10 0 10 10 Intake, Oral 600 840 840 740 300 Number 0 0 Bowel Movements Output, Stool 3 Output, Urine 300 100 Patient 202 lb 218 lb 236 lb 241 lb Weight Weight Bed scale Bed scale Bed scale Bed scale Measurement Method Results Pertinent Lab Results: Laboratory Tests 05/13 05/12 05/12 05/11 0775 2158 0700 2014 Chemistry Sodium (137 - 145 mmol/L) 126 L 125 L 125 L 123 L Potassium (3.5 - 5.1 mmol/L) 3.7 4.1 3.7 3.6 Chloride (98 - 107 mmol/L) 92 L 90 L 91 L 89 L Carbon Dioxide (22 - 30 mmol/L) 28 29 27 26 Anion Gap (5 - 16) 7 6 7 8 BUN (9 - 20 mg/dL) 16 17 15 17 Creatinine (0.7 - 1.2 mg/dL) 0.8 0.9 0.9 0.9 Estimated GFR (>60 ml/min) > 60 > 60 > 60 > 60 BUN/Creatinine Ratio (7 - 25 %) 20.0 18.9 16.7 18.9 Hematology CBC w Diff NO MAN DIFF REQ WBC (4.8 - 10.8 /CUMM) 6.0 RBC (4.70 - 6.10 /CUMM) 3.48 L Hgb (14.0 - 18.0 G/DL) 13.1 L Hct (42 - 52 %) 37.6 L MCV (80.0 - 94.0 FL) 108.1 H MCH (27.0 - 31.0 PG) 37.8 H MCHC (33.0 - 37.0 G/DL) 35.0 RDW (11.5 - 14.5 %) 15.1 H Plt Count (130 - 400 /CUMM) 166 MPV (7.4 - 10.4 FL) 7.2 L Gran % (42.2 - 75.2 %) 64.7 Lymphocytes % (20.5 - 51.1 %) 17.3 L Monocytes % (1.7 - 9.3 %) 13.0 H Eosinophils % (0 - 5 %) 4.6 Basophils % (0.0 - 2.0 %) 0.4 Absolute Granulocytes (1.4 - 6.5 /CUMM) 3.9 Absolute Lymphocytes (1.2 - 3.4 /CUMM) 1.0 L Absolute Monocytes (0.10 - 0.60 /CUMM) 0.8 H Absolute Eosinophils (0.0 - 0.7 /CUMM) 0.3 Absolute Basophils (0.0 - 0.2 /CUMM) 0 05/11 05/11 05/11 1420 1420 0649 Chemistry Sodium (137 - 145 mmol/L) 124 L Potassium (3.5 - 5.1 mmol/L) 3.9 Chloride (98 - 107 mmol/L) 89 L Carbon Dioxide (22 - 30 mmol/L) 27 Anion Gap (5 - 16) 8 BUN (9 - 20 mg/dL) 19 Creatinine (0.7 - 1.2 mg/dL) 1.0 Estimated GFR (>60 ml/min) > 60 BUN/Creatinine Ratio (7 - 25 %) 19.0 Hematology CBC w Diff NO MAN DIFF REQ WBC (4.8 - 10.8 /CUMM) 7.1 RBC (4.70 - 6.10 /CUMM) 3.39 L Hgb (14.0 - 18.0 G/DL) 12.7 L Hct (42 - 52 %) 37.1 L MCV (80.0 - 94.0 FL) 109.4 H MCH (27.0 - 31.0 PG) 37.6 H MCHC (33.0 - 37.0 G/DL) 34.4 RDW (11.5 - 14.5 %) 15.4 H Plt Count (130 - 400 /CUMM) 195 MPV (7.4 - 10.4 FL) 7.2 L Gran % (42.2 - 75.2 %) 64.5 Lymphocytes % (20.5 - 51.1 %) 21.7 Monocytes % (1.7 - 9.3 %) 10.7 H Eosinophils % (0 - 5 %) 2.7 Basophils % (0.0 - 2.0 %) 0.4 Absolute Granulocytes (1.4 - 6.5 /CUMM) 4.6 Absolute Lymphocytes (1.2 - 3.4 /CUMM) 1.5 Lymphocytes (%) 5 Absolute Monocytes (0.10 - 0.60 /CUMM) 0.8 H Absolute Eosinophils (0.0 - 0.7 /CUMM) 0.2 Absolute Basophils (0.0 - 0.2 /CUMM) 0 % Normal PMNs (%) 1 Other Body Source Fluid WBC (0 - 5 /CUMM) 171 H Fld Mesothelial Cells (%) Fld Total RBCs Counted (0 /CUMM) 26 H Fluid Glucose (mg/dL) 102 Fluid Total Protein (g/dL) < 2.0 Fluid Albumin (g/dL) < 1.0 Fluid LDH (U/L) 214 05/10 05/10 2330 2330 Urines Urinalysis LIGHT H Urine Color (YEL,AMB,STR) NAZANIN Urine Clarity (CLEAR) CLEAR Urine pH (5.0 - 8.0) 6.0 Ur Specific [place] (1.001 - 1.035) 1.015 Urine Protein (NEG,<30 MG/DL) NEG Urine Ketones (NEG) TRACE H Urine Nitrite (NEG) POS H Urine Bilirubin (NEG) NEG@ICTO Urine Urobilinogen (0.1 - 1.0 EU/dl) 2.0 H Ur Leukocyte Esterase (NEG) NEG Ur Microscopic SEDIMENT EXAMINED Urine RBC (0 - 5 /HPF) 1-3 Urine WBC (0 - 2 /HPF) 3-5 H Urine Bacteria (NEG/NONE) FEW H Hyaline Casts (0/LPF) 1-3 H Urine Mucus (FEW,NONE) FEW Urine Hemoglobin (NEG) NEG Urine Osmolality (300 - 1000 MOSM/KG) 692 Ur Random Creatinine (mg/dL) 228.6 Ur Random Sodium (30 - 90 mmol/L) < 5 L Ur Random Potassium (mmol/L) 39.3 Fraction Sodium Excret (<1% %) 0.0 Urine Glucose (N MG/DL) NEG Imaging/Other Studies: Ultrasound on May 10: IMPRESSION: 1. Large volume of abdominal ascites. 2. No focal liver lesion or intrahepatic bile duct dilatation. 3. Echogenic bile within the gallbladder. No gallstone. CT scan on May 10 (IV contrast): IMPRESSION: - Large amount of abdominopelvic ascites. - No hepatic mass. Mild indistinctness of the hepatic contour which may be related to underlying nodularity. This finding could be better assessed with ultrasound if needed. - Postoperative changes related to Duncan-en-Y gastric bypass. - Hyperdensity within the gallbladder likely reflecting sludge. - Diffuse anasarca. Assessment/Plan Assessment/Recommendations: 62-year-old male with a history of excessive alcohol use, and obesity (status post Duncan-en-Y gastric bypass). The patient began to develop increasing abdominal size and jaundice last month. He presents with decompensated cirrhosis, validated by imaging, and including the following: (1) Ascites, high SAAG, no peritonitis, no renal dysfunction. (2) Hyponatremia, not due to beer potomania as has been postulated elsewhere (the patient was not drinking alcohol prior to admission), but likely due to cirrhotic physiology. (3) Jaundice, hypoalbuminemia, mild coagulopathy. There has been no evidence of encephalopathy , no bleeding, and imaging does not reveal any hepatic lesion. The patient underwent an 11 L paracentesis with inadequate albumin repletion. He has been fluid restricted because of his hyponatremia, but is not on a low-sodium diet and, and has not been counseled as to the importance of this. Recommendations * 2 g sodium diet; the patient will need dietary counseling/instruction * May liberalize fluid restriction to 1500 mL, given sodium of greater than 125 * Given hyponatremia, will not begin diuretics at this point * Daily weight, including after discharge(patient should keep chart) * Outpatient EGD to rule out varices * Check alpha-fetoprotein * Outpatient alcohol rehabilitation program * After discharge, careful outpatient follow-up with Dr. Olivarez Consult Acknowledgment - Thank you for your consult request.
[2018-05-13 15:00] VITALS: BP 110/72
[2018-05-13 18:39] VITALS: BP 129/87
[2018-05-13 21:24] VITALS: BP 114/77
[2018-05-14 02:08] VITALS: BP 108/58
[2018-05-14 06:30] VITALS: BP 102/70
--- NOTE | 2018-05-14 08:33 | PN- Housestaff ---
Ivelisse Anthony 05/14/18 0833: Subjective Follow-up For: Large volume ascites Subjective: Patient was seen and examined at bedside. He reports an interval increase in his abdominal distension today. He is eating and drinking well, although he reports a 7/10 in the epigastric region after meals. He is currently on a fluid restriction of 1500cc a day and a 2g sodium diet. He denies fever, chills, nausea, vomiting, chest pain. Review of Systems Constitutional: Reports: see HPI. Objective Last 24 Hrs of Vital Signs/I&O Vital Signs Date Time Temp Pulse Resp B/P B/P Pulse O2 O2 Flow FiO2 Mean Ox Delivery Rate 05/14 0800 96 Room Air 05/14 0630 97.5 80 18 102/70 94 05/14 0208 97.6 84 18 108/58 95 05/13 2124 98.5 90 17 114/77 98 Room Air 05/13 1839 97.7 110 19 129/87 98 Room Air 05/13 1500 98.0 92 20 110/72 98 Intake & Output 05/14 1600 05/14 0800 05/14 0000 Intake Total 120 510 Output Total 175 100 Balance -55 410 Intake, IV 10 Intake, Oral 120 500 Output, Urine 175 100 Patient 235 lb Weight Physical Exam General Appearance: Alert, Oriented X3, Cooperative, No Acute Distress Skin: scaterred ecchymoses on bilateral upper limbs and torso Neck: Supple Cardiovascular: Regular Rate, Normal S1, Normal S2 Lungs: Clear to Auscultation Abdomen: distended, no distended veins seen, tenderness in the epigastric region Extremities: Normal Pulses, pedal edema 1+ Assessment/Plan Assessment: 62-year-old male with past medical history of hypertension, COPD, morbid obesity (BMI: 40.4), CURTIS (no longer on CPAP, since he lost his insurance), alcohol dependence (drinks at least one beer a day), status post gastric bypass is admitted to the [facility] service for the management of shortness of breath and abdominal distention since 4 weeks. He is s/p paracentesis on 05/11 wherein close to 11L fluid was drained. He again reports an interval increase in his abdominal girth since the past 2 days. He also complains of a 7/10 pain in the epigastric region especially after meals. There is slight tenderness to touch in the epigastric region. Abdominal Ultrasound IMPRESSION: 1. Large volume of abdominal ascites. 2. No focal liver lesion or intrahepatic bile duct dilatation. 3. Echogenic bile within the gallbladder. No gallstone. Abdominal CT scan IMPRESSION: - Large amount of abdominopelvic ascites. - No hepatic mass. Mild indistinctness of the hepatic contour which may be related to underlying nodularity. This finding could be better assessed with ultrasound if needed. - Postoperative changes related to Duncan-en-Y gastric bypass. - Hyperdensity within the gallbladder likely reflecting sludge. - Diffuse anasarca. Problems: 1. Ascites with decompensated liver failure 2. Transaminitis 3. Hyponatremia 4. Macrocytic anemia 5. Eleveted Lipase 6. Alcohol dependence 7. Easy bruising 8.Epigastric pain 9. History of COPD, CURTIS, GERD 1. Ascites -Large volume ascites likely secondary to decompensated liver failure -CT scan demonstrates nodularity of the liver -s/p Paracentesis -Albumin supplementation was given after paracentsis -GI input appreciate. * Patient is on fluid restriction of 1500cc * He is on a Sodium restricted diet of 2g * There has been an interval increase in the volume of ascites over the last 2 days. Will follow GI recommendations on the further course of management -Trend BEP -Trend LFTs - 2. Tranaminitis -AST elevated approximately 2 times ALT signifying alcoholic liver disease -Patient apparently has been trying to quit -WIll repeat BEP 3. Hyponatremia -Secondary to cirrhosis -Fluid restriction and on Na diet of 2g -Trend BEP 4. Macrocytosis -Likely seconadary to chornic alcohol use -Supplement B12 and folic acid -The patient does not complain of any focal neurological deficits at this time 5. Alcohol withdrawal - The patient has apparently been drinking heavily -At risk for severe withdrawal -He is on CIWA protocol, will monitor for withdrawal 6. Easy bruising -Platelet count adequate -Bruising likely due to qualitative defect in platelets 7. History of CURTIS, GERD, HYpertension and Hyperlipidemia Continue home medications and CPAP DVT prophylaxis: Lovenox Code status: Full code Problem List: 1. Macrocytosis 2. Alcohol dependence 3. Easy bruising 4. Ascites 5. Liver dysfunction 6. Hyponatremia 7. Hyperlipidemia 8. GERD (gastroesophageal reflux disease) 9. Sleep apnea 10. Hypertension 11. Morbid obesity Pain Ratin Pain Location: epigastric region post meals Pain Goal: Remain pain free Pain Plan: prilosec for now Tomorrow's Labs & Rationales: cbc and bep Osmar Thomason 05/14/18 1147: Attending MD Review Statement Attending Statement Attending MD Statement: examined this patient, discuss w/resident/PA/DIGITAL COMMUNITY MANAGER, agreed w/resident/PA/DIGITAL COMMUNITY MANAGER, discussed with family, reviewed EMR data (avail), discussed with nursing, discussed with case mgmt, reviewed images, amended to note Attending Assessment/Plan: 62-year-old history of gastric bypass surgery 3 years ago presents to the emergency room complains of progressively worsening shortness of breath with generalized edema and increased abdominal girth 2/2 decompensated cirrhosis and ascites likely alcoholic. Hemodynamically stable. Abdomen mild distended. Problems: 1. Marked ascites secondary to cirrhosis 2. Transaminitis 3. Hyponatremia 4. Alcohol abuse 5. Elevated INR Plan: -s/p diagnostic and therapeutic paracentesis. Removal 10l of fluid. -Fluid restriction. Na stable. -Viral hepatitis panel is negative. Transaminitis is likely secondary to alcohol use. -anticipate discharge if ok with GI. FOLLOW UP PCP in 1-2 weeks of discharge GI in 2-3 weeks of discharge
[2018-05-14 09:02] LABS: ABSOLUTE BASOPHIL COUNT 0 /CUMM (0.0-0.2); ABSOLUTE EOSINOPHIL COUNT 0.3 /CUMM (0.0-0.7); ABSOLUTE GRANULOCYTE CT 4.3 /CUMM (1.4-6.5); ABSOLUTE LYMPH COUNT 1.7 /CUMM (1.2-3.4); BASOPHIL % 0.5 % (0.0-2.0); EOSINOPHIL % 3.7 % (0-5); GRANULOCYTE % 59.5 % (42.2-75.2); HEMATOCRIT 39.6 % (42-52); MEAN CORPUSCULAR HGB 37.6 PG (27.0-31.0); MEAN CORPUSCULAR HGB CONC 34.8 G/DL (33.0-37.0); MEAN CORPUSCULAR VOLUME 108.1 FL (80.0-94.0); MEAN PLATELET VOLUME 7.4 FL (7.4-10.4); PLATELET COUNT 183 /CUMM (130-400); RBC DISTRIBUTION WIDTH 15.1 % (11.5-14.5); RED BLOOD CELL CT 3.66 /CUMM (4.70-6.10); WHITE BLOOD CELL COUNT 7.3 /CUMM (4.8-10.8)
[2018-05-14 14:21] VITALS: BP 100/86
--- NOTE | 2018-05-14 19:32 | PN- Gastroenterology ---
Assessment/Plan GI Assessment/Recommendations: Decompensated cirrhosis, with ascites. Hyponatremia, stable. Recommendations * 2 g sodium diet; the patient will need dietary counseling/instruction * Continue fluid restriction at 1500 mL, given sodium of 125 * Given hyponatremia, will not begin diuretics at this point * Daily weight, including after discharge(patient should keep chart). Need to reconcile the vast difference from one day to the next in IPOC. * Outpatient EGD to rule out varices * Check alpha-fetoprotein * Outpatient alcohol rehabilitation program * May discharge from a GI standpoint; afterwards, careful outpatient follow-up with Dr. Olivarez Subjective Subjective: Patient has increasing abdominal girth, without pain. Decreased urination. He did not receive dietary teaching regarding 2 g sodium diet. Objective Vital Signs and I&Os Vital Signs Date Time Temp Pulse Resp B/P B/P Pulse O2 O2 Flow FiO2 Mean Ox Delivery Rate 05/14 1421 97.9 91 20 100/86 96 05/14 0800 96 Room Air 05/14 0630 97.5 80 18 102/70 94 05/14 0208 97.6 84 18 108/58 95 05/13 2124 98.5 90 17 114/77 98 Room Air Intake & Output 05/14 1600 05/14 0400 05/13 1600 05/13 0400 05/12 1600 05/12 0400 Intake Total 680 510 370 610 840 850 Output Total 476 100 625 100 3 Balance 204 410 -255 510 837 850 Intake, IV 200 10 10 10 0 10 Intake, Oral 480 500 360 600 840 840 Number 0 0 Bowel Movements Output, Stool 1 3 Output, Urine 475 100 625 100 Patient 235 lb 202 lb 218 lb 236 lb Weight Weight Bed scale Bed scale Bed scale Measurement Method Physical Exam: According to IP documentation, his weight today is 234 pounds, and yesterday was 202 pounds (!) Alert and oriented, no asterixis. Sclera icteric. Increased abdominal size. No pedal edema. Current Medications: Current Medications Sig/Dione Start time Last Medication Dose Route Stop Time Status Admin Acetaminophen 325 MG Q6P PRN 05/10 2130 AC PO Albumin Human 50 GM ONCE ONE 05/14 915 DC 05/14 IV 05/14 0916 1117 Aspirin Buffered 81 MG DAILY 05/12 09 AC 05/14 PO 0858 Volga Butter/Shark 1 BREANN Q4-PRN PRN 05/13 1700 AC 05/14 Liver Oil TOP 0859 Enoxaparin Sodium 40 MG DAILY 05/11 0900 AC 05/14 SC 0859 Lidocaine 1 PAT Q24H PRN 05/10 2130 AC EXT Lorazepam 0 Q1P PRN 05/10 1715 AC IV Melatonin 5 MG AT BEDTIME 05/11 2100 AC 05/13 PO 2107 Omeprazole 40 MG DAILY AC 05/14 0948 AC 05/14 PO 1118 Patient Medication 1 ED ONE ONE 05/14 0930 [facility] [place] ED 05/14 0931 Results Pertinent Lab Results: Laboratory Tests 05/14 05/13 05/12 0720 0725 2155 Chemistry Sodium (137 - 145 mmol/L) 125 L 126 L 125 L Potassium (3.5 - 5.1 mmol/L) 3.9 3.7 4.1 Chloride (98 - 107 mmol/L) 92 L 92 L 90 L Carbon Dioxide (22 - 30 mmol/L) 27 28 29 Anion Gap (5 - 16) 7 7 6 BUN (9 - 20 mg/dL) 18 16 17 Creatinine (0.7 - 1.2 mg/dL) 0.8 0.8 0.9 Estimated GFR (>60 ml/min) > 60 > 60 > 60 BUN/Creatinine Ratio (7 - 25 %) 22.5 20.0 18.9 Lipase (23 - 300 U/L) 801 H Hematology CBC w Diff NO MAN DIFF REQ WBC (4.8 - 10.8 /CUMM) 7.3 RBC (4.70 - 6.10 /CUMM) 3.66 L Hgb (14.0 - 18.0 G/DL) 13.8 L Hct (42 - 52 %) 39.6 L MCV (80.0 - 94.0 FL) 108.1 H MCH (27.0 - 31.0 PG) 37.6 H MCHC (33.0 - 37.0 G/DL) 34.8 RDW (11.5 - 14.5 %) 15.1 H Plt Count (130 - 400 /CUMM) 183 MPV (7.4 - 10.4 FL) 7.4 Gran % (42.2 - 75.2 %) 59.5 Lymphocytes % (20.5 - 51.1 %) 22.8 Monocytes % (1.7 - 9.3 %) 13.5 H Eosinophils % (0 - 5 %) 3.7 Basophils % (0.0 - 2.0 %) 0.5 Absolute Granulocytes (1.4 - 6.5 /CUMM) 4.3 Absolute Lymphocytes (1.2 - 3.4 /CUMM) 1.7 Absolute Monocytes (0.10 - 0.60 /CUMM) 1.0 H Absolute Eosinophils (0.0 - 0.7 /CUMM) 0.3 Absolute Basophils (0.0 - 0.2 /CUMM) 0 05/12 05/11 0700 2014 Chemistry Sodium (137 - 145 mmol/L) 125 L 123 L Potassium (3.5 - 5.1 mmol/L) 3.7 3.6 Chloride (98 - 107 mmol/L) 91 L 89 L Carbon Dioxide (22 - 30 mmol/L) 27 26 Anion Gap (5 - 16) 7 8 BUN (9 - 20 mg/dL) 15 17 Creatinine (0.7 - 1.2 mg/dL) 0.9 0.9 Estimated GFR (>60 ml/min) > 60 > 60 BUN/Creatinine Ratio (7 - 25 %) 16.7 18.9 Hematology CBC w Diff NO MAN DIFF REQ WBC (4.8 - 10.8 /CUMM) 6.0 RBC (4.70 - 6.10 /CUMM) 3.48 L Hgb (14.0 - 18.0 G/DL) 13.1 L Hct (42 - 52 %) 37.6 L MCV (80.0 - 94.0 FL) 108.1 H MCH (27.0 - 31.0 PG) 37.8 H MCHC (33.0 - 37.0 G/DL) 35.0 RDW (11.5 - 14.5 %) 15.1 H Plt Count (130 - 400 /CUMM) 166 MPV (7.4 - 10.4 FL) 7.2 L Gran % (42.2 - 75.2 %) 64.7 Lymphocytes % (20.5 - 51.1 %) 17.3 L Monocytes % (1.7 - 9.3 %) 13.0 H Eosinophils % (0 - 5 %) 4.6 Basophils % (0.0 - 2.0 %) 0.4 Absolute Granulocytes (1.4 - 6.5 /CUMM) 3.9 Absolute Lymphocytes (1.2 - 3.4 /CUMM) 1.0 L Absolute Monocytes (0.10 - 0.60 /CUMM) 0.8 H Absolute Eosinophils (0.0 - 0.7 /CUMM) 0.3 Absolute Basophils (0.0 - 0.2 /CUMM) 0
[2018-05-14 20:00] VITALS: BP 100/86
[2018-05-14 22:00] VITALS: BP 122/84
[2018-05-14 22:01] VITALS: BP 122/84
[2018-05-15 06:35] VITALS: BP 130/80
--- NOTE | 2018-05-15 07:20 | PN- Housestaff ---
Sharad Anthonyi 05/15/18 0720: Subjective Follow-up For: Decompensated liver failure Cirrhosis Subjective: Patient was seen and exmained at bedside. He has no new complaints. He was counselled about the importance of salt and fluid restriction. He seemed to have understood well. He would be following up with as an outpatient for an EGD to rule out the presence of vaices. He denies any complaints at present. Review of Systems Constitutional: Reports: see HPI. Objective Last 24 Hrs of Vital Signs/I&O Vital Signs Date Time Temp Pulse Resp B/P B/P Pulse O2 O2 Flow FiO2 Mean Ox Delivery Rate 05/15 0635 98.0 91 20 130/80 94 Room Air 05/14 2201 98.3 84 20 122/84 95 05/14 2200 98.3 84 20 122/84 05/14 2000 97.9 91 20 100/86 05/14 1421 97.9 91 20 /86 96 Intake & Output 05/15 1600 05/15 0800 05/15 0000 Intake Total 480 610 Output Total 350 Balance 480 260 Intake, IV 0 10 Intake, Oral 480 600 Number 0 0 Bowel Movements Output, Urine 350 Physical Exam General Appearance: Alert, Oriented X3, Cooperative, No Acute Distress Skin: No Rashes Cardiovascular: Regular Rate, Normal S1, Normal S2, No Murmurs Lungs: Clear to Auscultation, Normal Air Movement Abdomen: Normal Bowel Sounds, Soft, No Tenderness, mildly distended Extremities: No Edema, Normal Pulses Assessment/Plan Assessment: 62-year-old male with past medical history of hypertension, COPD, morbid obesity (BMI: 40.4), CURTIS (no longer on CPAP, since he lost his insurance), alcohol dependence (drinks at least one beer a day), status post gastric bypass is admitted to the [facility] service for the management of shortness of breath and abdominal distention since 4 weeks. He is s/p paracentesis on 05/11 wherein close to 11L fluid was drained. He again reports an interval increase in his abdominal girth since the past 2 days. He has no abodominal discomfort at this time. Abdominal Ultrasound IMPRESSION: 1. Large volume of abdominal ascites. 2. No focal liver lesion or intrahepatic bile duct dilatation. 3. Echogenic bile within the gallbladder. No gallstone. Abdominal CT scan IMPRESSION: - Large amount of abdominopelvic ascites. - No hepatic mass. Mild indistinctness of the hepatic contour which may be related to underlying nodularity. This finding could be better assessed with ultrasound if needed. - Postoperative changes related to Duncan-en-Y gastric bypass. - Hyperdensity within the gallbladder likely reflecting sludge. - Diffuse anasarca. Problems: 1. Ascites with decompensated liver failure 2. Transaminitis 3. Hyponatremia 4. Macrocytosis 5. Eleveted Lipase 6. Alcohol dependence 7. Easy bruising 8. Epigastric pain 9. History of COPD, CURTIS, GERD 1. Ascites -Large volume ascites likely secondary to decompensated liver failure -CT scan demonstrates nodularity of the liver -s/p Paracentesis -Albumin supplementation was given after paracentsis -GI input appreciate. * Patient is on fluid restriction of 1500cc * He is on a Sodium restricted diet of 2g * Dietery counselling was sorted for him * There has been an interval increase in the volume of ascites over the last 2 days. He would closely follow up with for an outpatient EGD to rule out varices. * Would order alpha fetoprotein as a lab add on and would update the patient when the results get back 2. Tranaminitis -AST elevated approximately 2 times ALT signifying alcoholic liver disease -Patient apparently has been trying to quit -The patient was co unselled to abstain from alcohol 3. Hyponatremia -Secondary to cirrhosis -Fluid restriction and on Na diet of 2g -Trend BEP 4. Macrocytosis -Likely seconadary to chornic alcohol use -Supplement B12 and folic acid -The patient does not complain of any focal neurological deficits at this time 5. Alcohol withdrawal - The patient did not experience any withdrawal symptoms whilst in the hospital 6. Easy bruising -Platelet count adequate -Bruising likely due to qualitative defect in platelets 7. History of CURTIS, GERD, HYpertension and Hyperlipidemia Continue home medications and CPAP The patient is being discharged home today. He would follow up with GI as an outpatient DVT prophylaxis: Lovenox Code status: Full code Problem List: 1. Macrocytosis 2. Alcohol dependence 3. Easy bruising 4. Ascites 5. Liver dysfunction 6. Hyponatremia 7. Hyperlipidemia 8. GERD (gastroesophageal reflux disease) 9. Hypertension 10. Sleep apnea 11. Morbid obesity Pain Ratin Pain Location: none Pain Goal: Remain pain free Pain Plan: none Tomorrow's Labs & Rationales: none Osmar Thomason 05/15/18 1119: Attending MD Review Statement Attending Statement Attending MD Statement: examined this patient, discuss w/resident/PA/[employer], agreed w/resident/PA/[employer], discussed with family, reviewed EMR data (avail), discussed with nursing, discussed with case mgmt, reviewed images, amended to note Attending Assessment/Plan: Patient with hyponatremia stable from volume overload in cirrhosis and ascites. GI consulted and recommend dietary restriction and fluid restriction. Patient underwent paracentesis during this hsopital admission. He had elevated lipase levels which can be raised from PUD like symtoms. He is on PPi daily. He takes ASA at home. He needs to follow up with PCP and GI after discharge. FOLLOW UP PCP in 1 weeks GI in 3-4 weeks
[2018-05-15 09:17] LABS: ABSOLUTE BASOPHIL COUNT 0 /CUMM (0.0-0.2); ABSOLUTE EOSINOPHIL COUNT 0.1 /CUMM (0.0-0.7); ABSOLUTE GRANULOCYTE CT 5.5 /CUMM (1.4-6.5); ABSOLUTE LYMPH COUNT 1.2 /CUMM (1.2-3.4); ABSOLUTE MONOCYTE COUNT 0.3 /CUMM (0.10-0.60); BASOPHIL % 0.2 % (0.0-2.0); EOSINOPHIL % 1.9 % (0-5); GRANULOCYTE % 77.1 % (42.2-75.2); HEMATOCRIT 39.5 % (42-52); MEAN CORPUSCULAR HGB 37.8 PG (27.0-31.0); MEAN CORPUSCULAR HGB CONC 35.3 G/DL (33.0-37.0); MEAN CORPUSCULAR VOLUME 107.1 FL (80.0-94.0); MEAN PLATELET VOLUME 7.1 FL (7.4-10.4); PLATELET COUNT 177 /CUMM (130-400); RBC DISTRIBUTION WIDTH 14.7 % (11.5-14.5); RED BLOOD CELL CT 3.69 /CUMM (4.70-6.10); WHITE BLOOD CELL COUNT 7.1 /CUMM (4.8-10.8)
[2018-05-15] MEDS ORDERED: OMEPRAZOLE20 M2 PO (09:42)
== END 2018-05-15 14:05 | DRG 433 ==
LOC: ERH 10:44 → ERHI 16:08 → 2NB 16:08 → ENRESERV 16:59 → ENTRNSPT 18:45 → 2NB 19:07 → EDTRNSPTSTS 19:09 → EDTRNSPT 19:09 → CMPTRNSPT 19:37 → 2NB 05-11 07:32 → ENPENDDIS 05-15 10:57 → ENTRNSPT 05-15 13:39 → 2NB 05-15 14:05 → CMPTRNSPT 05-15 15:24
PROVIDERS: Hospitalist; Physician Assistant; Student in an Organized Health Care Education/Training Program
PROC: 0W9G3ZZ Drainage of Peritoneal Cavity, Percutaneous Approach (ICD-10-PCS; principal; 2018-05-11)
DX: K70.40 Alcoholic hepatic failure without coma (principal); E87.1 Hypo-osmolality and hyponatremia; F10.239 Alcohol dependence with withdrawal, unspecified; J44.9 Chronic obstructive pulmonary disease, unspecified; G47.33 Obstructive sleep apnea (adult) (pediatric); I10 Essential (primary) hypertension; E66.01 Morbid (severe) obesity due to excess calories; Z68.36 Body mass index [BMI] 36.0-36.9, adult; D53.9 Nutritional anemia, unspecified; T14.8XXA Other injury of unspecified body region, initial encounter; Z98.84 Bariatric surgery status; Z79.82 Long term (current) use of aspirin; R74.0 Nonspecific elevation of levels of transaminase and lactic acid dehydrogenase [LDH]; K21.9 Gastro-esophageal reflux disease without esophagitis; K70.31 Alcoholic cirrhosis of liver with ascites; Z87.891 Personal history of nicotine dependence; R79.1 Abnormal coagulation profile
CPT/HCPCS: 04007; 2NBSP; 84133; 84300; 87075; 36415; 36592; 71045; 74177; 81001; 82436; 82570; 88305; 93005; 93010; J1650; J2001; J3490; P9047